=== PATIENT | male | born 1955 | race Caucasian/White ===

== ENCOUNTER 2020-04-23 16:58 | Inpatient (IN) | payer MEDICARE, OTHER ==
[~2020-04-23] VITALS: Ht 170.2 cm; Wt 84.4 kg
[~2020-04-23 16:58] MED LIST: PIPERACILLIN /TAZOBACTAM 2.25 G in IV D5W 50 ML IV SCH
--- NOTE | 2020-04-23 17:49 | NUR ---
SENT FROM DR. ST FOR LOW O2 SAT. PT AAOX4, VSS. DENIES CP, DIZZINESS, N/V, WEAKNESS AT THIS TIME. O2 SAT 85% RA. PLACED ON 4L OF O2, O2 SAT 100%. PT SEEN & EVAL'D BY DR. SCALES. PLACED ON FUNERAL DIRECTOR/EMBALMER, SR. WILL CONT TO MONITOR.
[2020-04-23] MEDS ORDERED: FERR325T23 PO (18:03)
[2020-04-23] MEDS ORDERED: PANT40TA49 PO (18:03)
[2020-04-23] MEDS ORDERED: SEVE800T28 PO (18:03)
[2020-04-23] MEDS ORDERED: FURO40TA5 PO (18:03)
[2020-04-23] MEDS ORDERED: CALC667C6 PO (18:03)
[2020-04-23] MEDS ORDERED: ASPI-1498 PO (18:03)
[2020-04-23] MEDS ORDERED: FOLI0.8T23 PO (18:03)
[2020-04-23] MEDS ORDERED: FENO145T21 PO (18:03)
[2020-04-23] MEDS ORDERED: TRAZ-252 PO (18:03)
[2020-04-23] MEDS ORDERED: ATOR10TA PO (18:03)
[2020-04-23] MEDS ORDERED: METO25TA20 PO (18:03)
[2020-04-23] MEDS ORDERED: DOCU250C21 PO (18:03)
[2020-04-23] MEDS ORDERED: FAMO20TA8 PO (18:03)
[2020-04-23] MEDS ORDERED: LINA5TAB PO (18:03)
[2020-04-23] MEDS ORDERED: FINA5TAB11 PO (18:03)
[2020-04-23] MEDS ORDERED: MIDO10TA PO (18:03)
[2020-04-23 18:12] LABS: BASOPHILS # (AUTO) 0.1 /CMM (0.0-0.2); BASOPHILS % (AUTO) 0.7 % (0.0-2.0); EOSINOPHILS % (AUTO) 1.9 % (0.0-6.0); HEMATOCRIT 32 % (39-51); HEMOGLOBIN 9.9 g/dL (13.5-17.5); LYMPHOCYTES # (AUTO) 0.4 /CMM (0.8-4.8); LYMPHOCYTES % (AUTO) 4.3 % (20.0-44.0); MEAN CORPUSCULAR HGB CONC 31 g/dl (31.0-36.0); MEAN CORPUSCULAR VOLUME 101 fL (80-96); MONOCYTES % (AUTO) 11.9 % (2.0-12.0); NEUTROPHILS % (AUTO) 81.2 % (43.0-81.0); PLATELET COUNT (AUTO) 192 /CMM (150-450); RED BLOOD CELL COUNT(AUTO) 3.14 MIL/uL (4.5-6.0); WHITE BLOOD COUNT (AUTO) 8.7 K/uL (4.3-11.0)
[2020-04-23] MEDS ORDERED: IV NS 0.9% 250 ML IV ONE (18:34)
[2020-04-23] MEDS ORDERED: IOHEXOL-350 100 ML VIAL IV ONE (18:34)
[2020-04-23 18:39] LABS: CALCIUM, SERUM 8.7 mg/dL (8.5-10.1); CREATININE 5.2 mg/dL (0.6-1.3); POTASSIUM 4.4 mmol/L (3.5-5.1)
[2020-04-23 19:03] LABS: ALBUMIN 1.8 g/dL (3.4-5.0); BILIRUBIN,DIRECT 0.1 mg/dL (0.0-0.2); BILIRUBIN,TOTAL 0.2 mg/dL (0.2-1.0); TOTAL PROTEIN, SERUM 6.3 g/dL (6.4-8.2)
--- NOTE | 2020-04-23 19:18 | NUR ---
PT STABLE, RR EVEN & UNLABORED. DENIES CP, SOB, DIZZINESS, N/V AT THIS TIME. WILL CONT TO MONITOR.
[2020-04-23] MEDS ORDERED: PIPERACILLIN /TAZOBACTAM 3.375 G in IV D5W 50 ML IV ONE (19:30)
[2020-04-23] MEDS ORDERED: LEVOFLOXACIN 750 MG /D5W 150ML 150 ML IV ONE (19:30)
--- NOTE | 2020-04-23 19:44 | NUR ---
CALLED NURSING SUP FOR [facility] BED.
--- NOTE | 2020-04-23 19:45 | NUR ---
KEVIN LANDAVERDE, DNP @ BS FOR EVAL
--- NOTE | 2020-04-23 19:59 | NUR ---
BED ASSIGNMENT 257
[2020-04-23] MEDS ORDERED: MAGNESIUM HYDROXIDE 30 ML UDC PO PRN (20:00)
[2020-04-23] MEDS ORDERED: Z GUARD REMEDY 2 OZ OINT TP PRN (20:00)
[2020-04-23] MEDS ORDERED: MORPHINE SULFATE INJ 2 MG/ML DISP.SYRIN IV PRN (20:00)
[2020-04-23] MEDS ORDERED: ONDANSETRON HCL/PF 4 MG/2 ML VIAL IVP PRN (20:00)
[2020-04-23] MEDS ORDERED: MAG HYDROX/AL HYDROX/SIMETH 30 ML UDC PO PRN (20:00)
[2020-04-23] MEDS ORDERED: HYDROCODONE/APAP 5/325MG TABLET PO PRN (20:00)
[2020-04-23] MEDS ORDERED: MIDODRINE HCL (5MG) 5 MG TABLET PO PRN (20:30)
[2020-04-23] MEDS ORDERED: ALBUTEROL FS 2.5 MG/0.5 ML VIAL.NEB NEB PRN (20:30)
--- NOTE | 2020-04-23 21:15 | NUR ---
REPORT GIVEN TO MAYLIN ROSE FOR REY.
[2020-04-23 22:00] VITALS: BP 122/65
--- NOTE | 2020-04-23 22:00 | NUR ---
PT BEING ADMITTED IN THE ICU FOR PNA, RESP. FAILURE. OXYGEN 4L VIA NASAL CANNULA. SAT 97%, NO ACUTE DISTRESS NOTED. LEAD LAYING AND GLUING MACHINE OPERATOR SHOWING V PACED, IV LT HAND 18G. SALINE LOCK. RT HAND AV FISTULA. AFEBRILE. HOB ELEVATED. MARILU LOWER EXTREMITY SWOLLEN 2+. SACRAL STAGE 1. RT LOWER CHEST PLEURX. AFEBRILE, WILL CONTINUE TO MONITOR.
[2020-04-23 23:00] VITALS: BP 122/57
[2020-04-23 23:15] VITALS: BP 100/54
[2020-04-23 23:30] VITALS: BP 51/37
[2020-04-23] MEDS: HEPARIN SODIUM, PORCINE 5000 UNITS/1 ML VIAL SQ SCH (23:44)
[2020-04-23] MEDS: ATORVASTATIN 10 MG TABLET PO SCH (23:45)
[2020-04-23] MEDS: TRAZODONE 50 MG TABLET PO SCH (23:45)
[2020-04-24] VITALS (58 sets, daily range): BP systolic 80–128; BP diastolic 26–75
--- NOTE | 2020-04-24 | NUR ---
RESIDENTIAL SALES. ORAL MDS SCANNED AND GIVEN. C PAP PLACED. SAT 98%. NO ACUTE DISTRESS NOTED. FLAGSETTER SHOWING V PACED. WILL CONTINUE TO MONITOR VITALS
--- NOTE | 2020-04-24 | NUR ---
curriculum writer. remaining same c pap setting tolerated well
--- NOTE | 2020-04-24 02:00 | NUR ---
agricultural produce commission agent . pt remaining same c pap setting tolerated well.will continue to monitor
[2020-04-24] MEDS ORDERED: PIPERACILLIN /TAZOBACTAM 3.375 G VIAL IV ONE (04:47)
[2020-04-24] MEDS ORDERED: PIPERACILLIN /TAZOBACTAM 2.25 G VIAL IV ONE (04:51)
[2020-04-24 04:52] LABS: BASOPHILS # (AUTO) 0.1 /CMM (0.0-0.2); BASOPHILS % (AUTO) 0.7 % (0.0-2.0); EOSINOPHILS % (AUTO) 1.7 % (0.0-6.0); HEMATOCRIT 28 % (39-51); HEMOGLOBIN 8.7 g/dL (13.5-17.5); LYMPHOCYTES # (AUTO) 0.3 /CMM (0.8-4.8); LYMPHOCYTES % (AUTO) 4.1 % (20.0-44.0); MEAN CORPUSCULAR HGB CONC 31 g/dl (31.0-36.0); MEAN CORPUSCULAR VOLUME 102 fL (80-96); MONOCYTES % (AUTO) 13.7 % (2.0-12.0); NEUTROPHILS # (AUTO) 5.9 /CMM (1.8-8.9); NEUTROPHILS % (AUTO) 79.8 % (43.0-81.0); PLATELET COUNT (AUTO) 159 /CMM (150-450); RED BLOOD CELL COUNT(AUTO) 2.75 MIL/uL (4.5-6.0); WHITE BLOOD COUNT (AUTO) 7.5 K/uL (4.3-11.0)
[2020-04-24] MEDS: PIPERACILLIN /TAZOBACTAM 2.25 G in IV D5W 50 ML IV SCH ×3 (04:53→21:06)
[2020-04-24 05:05] LABS: CALCIUM, SERUM 8.1 mg/dL (8.5-10.1); CREATININE 5.5 mg/dL (0.6-1.3); MAGNESIUM 2.3 mg/dL (1.8-2.4); PHOSPHORUS 5.9 mg/dL (2.5-4.9); POTASSIUM 4.5 mmol/L (3.5-5.1)
[2020-04-24 05:20] LABS: THYROID STIMULATING HORMONE 2.413 uIU/mL (0.358-3.74)
--- NOTE | 2020-04-24 05:48 | NUR ---
RT NOTE REMOVED PT FROM NOC CPAP. PLACED PT ON 36% NASAL CANNULA. PT AWAKE/ALERT AND FOLLOWING COMMANDS. NO DISTRESS NOTED AT THIS TIME. RN SALVATORE AWARE.
--- NOTE | 2020-04-24 06:00 | NUR ---
horticultural farmworker. pt slept well during shift, oxygen 4l nasal cannula tolerated well. sat 97%. no acute distress noted. monitor showing v pacing. will continue to monitor hd started.
--- NOTE | 2020-04-24 07:10 | NUR ---
RN NOTES BILL DIALYSIS NURSE AT THE BED SITE
[2020-04-24] MEDS ORDERED: PANTOPRAZOLE 40 MG TABLET.DR PO SCH (07:30)
--- NOTE | 2020-04-24 07:30 | NUR ---
RN NOTES RECEIVED PT IN BED AND PT IS HAVING DIALYSIS . ALERT AND ORIENTED X3.R HAND HD. PT IS 4L O2 SAT IN HIS 95%. NO SOB OR DISTRESS NOTED. L HAND IV IS TKO RUNNING NO INFILTRATION OR INFECTION NOTED.R HAND IS HD DIALYSIS. BRANCH ADMINISTRATOR NURSE SALVATORE STATED DRAINED PLEX CATHETER WAS DRAINED 200 ML.SAFETY MEASURE ARE IMPLEMENTED PER HOSPITAL POLICY.BED IS IN THE LOWEST POSITION. SIDE RAILS ARE UP X2.CALL LIGHT WITHIN THE REACH.WILL CONTUNIE TO MONITOR
--- NOTE | 2020-04-24 07:53 | NUR ---
superintendent horticulture. pleurx catheter drain 200ml. serous color
[2020-04-24] MEDS: METOPROLOL TARTRATE 25 MG TABLET PO SCH (08:48)
--- NOTE | 2020-04-24 08:50 | NUR ---
RN NOTES DIALYSIS IS STILL IN PLACE. INFORMED DOCTOR THAT METOPROLOL WILL BE HELD AND LASIX DUE TO BP IS LOW 90/49. CHARGE NURSE JOSE ALBERTO IS AWARE.
[2020-04-24] MEDS: SEVELAMER CARBONATE 800 MG TABLET PO SCH ×3 (08:54→17:52)
[2020-04-24] MEDS: VIT B CMPLX 3/FA/VIT C/BIOTIN 1 TAB TABLET PO SCH (08:54)
[2020-04-24] MEDS: FAMOTIDINE (20 MG) 20 MG TABLET PO SCH (08:55)
[2020-04-24] MEDS: LINAGLIPTIN 5 MG TABLET PO SCH (08:55)
[2020-04-24] MEDS: FINASTERIDE (5 MG) 5 MG TABLET PO SCH (08:55)
[2020-04-24] MEDS: CALCIUM ACETATE 667 MG TABLET PO SCH ×3 (08:55→17:53)
[2020-04-24] MEDS: DOCUSATE SODIUM 250 MG CAPSULE PO SCH (08:55)
[2020-04-24] MEDS: DOXYCYCLINE HYCLATE (100 MG) 100 MG TABLET PO SCH ×2 (08:55→16:03)
[2020-04-24] MEDS: ASPIRIN EC 81 MG TABLET.DR PO SCH (08:55)
[2020-04-24] MEDS: FENOFIBRATE NANOCRYS (145 MG) 145 MG TABLET PO SCH (08:55)
[2020-04-24] MEDS: FERROUS SULFATE (325 MG) 325 MG/TAB TABLET PO SCH ×2 (08:55→16:03)
[2020-04-24] MEDS: HEPARIN SODIUM, PORCINE 5000 UNITS/1 ML VIAL SQ SCH ×2 (08:57→21:15)
[2020-04-24] MEDS ORDERED: FUROSEMIDE 40 MG TABLET PO SCH (09:00)
[2020-04-24 09:23] LABS: THYROID STIMULATING HORMONE 2.417 uIU/mL (0.358-3.74)
--- NOTE | 2020-04-24 11:00 | NUR ---
RN NOTES BILL DONE WITH DIALYSIS AND TOOK 1800 ML . PT BP IS STILL TOO LOW. HIS BASIC IS TOO BP LOW
--- NOTE | 2020-04-24 11:00 | NUR ---
RN NOTES NOTED REDNESS, CELLULITIS AND HEAT IN HIS LEGS CONTRAINDICATION FOR SCD COMPRESSORS WILL REMOVE AND NOTIFIED DOCTOR MARCO FOR FURTHER NOTICE
--- NOTE | 2020-04-24 12:16 | NUR ---
RN NOTES DOCTOR MARCO CHECKED PT LEGS STATING THAT IT IS CHRONIC VENOUS HEPARIN SUBCUTE IT IS GOOD NO NEED FOR SCD
--- NOTE | 2020-04-24 16:00 | NUR ---
RN NOTES PT IS RESTING . NO SOB OR DISTRESS NOTED
--- NOTE | 2020-04-24 18:50 | NUR ---
RN NOTES NO DRAINAGE FROM PLEUX CATHETER
--- NOTE | 2020-04-24 18:51 | NUR ---
RN CLOSING NOTES PT IS RESTING IN BED. ALERT AND ORIENTED X3.R HAND HD. PT IS 4L O2 SAT IN HIS 95%. NO SOB OR DISTRESS NOTED. L HAND IV IS TKO RUNNING NO INFILTRATION OR INFECTION NOTED.R HAND IS HD DIALYSIS. ALL NEEDS ARE MET. PT IS DRY AND MEDS WERE TAKEN. SAFETY MEASURE ARE IMPLEMENTED PER HOSPITAL POLICY.BED IS IN THE LOWEST POSITION. SIDE RAILS ARE UP X2.CALL LIGHT WITHIN THE REACH.WILL ENDORSE TO NIGHT NURSE FOR REY
--- NOTE | 2020-04-24 19:47 | NUR ---
OIL ANALYST. INITIAL ASSESSMENT. RECEIVED THE PT REST ON THE BED. AWAKE , ALERT FOLLOW COMMANDS. OXYGEN 4L VIA NASAL CANNULA. SAT 98%. EASEMENT MAN SHOWING V PACING. IV LT HAND 18G. SALINE LOCK. WILL CONTINUE TO MONITOR.
[2020-04-24] MEDS: ATORVASTATIN 10 MG TABLET PO SCH (21:06)
[2020-04-24] MEDS: TRAZODONE 50 MG TABLET PO SCH (21:06)
--- NOTE | 2020-04-24 21:41 | NUR ---
RT pt placed on noc cpap with current settings per md order. no sob/no resp distress. ambu bag at bedside. pt tolerating cpap well. will continue to monitor.
[2020-04-25] VITALS (68 sets, daily range): BP systolic 47–182; BP diastolic 28–140
--- NOTE | 2020-04-25 02:00 | NUR ---
manager agricultural. no changes. will continue to monitor
[2020-04-25 04:39] LABS: BASOPHILS # (AUTO) 0.1 /CMM (0.0-0.2); BASOPHILS % (AUTO) 0.9 % (0.0-2.0); EOSINOPHILS % (AUTO) 2.9 % (0.0-6.0); HEMATOCRIT 28 % (39-51); HEMOGLOBIN 8.8 g/dL (13.5-17.5); LYMPHOCYTES # (AUTO) 0.3 /CMM (0.8-4.8); LYMPHOCYTES % (AUTO) 4.7 % (20.0-44.0); MEAN CORPUSCULAR HGB CONC 31 g/dl (31.0-36.0); MEAN CORPUSCULAR VOLUME 101 fL (80-96); MONOCYTES # (AUTO) 0.8 /CMM (0.1-1.30); MONOCYTES % (AUTO) 12.9 % (2.0-12.0); NEUTROPHILS # (AUTO) 5.2 /CMM (1.8-8.9); NEUTROPHILS % (AUTO) 78.6 % (43.0-81.0); PLATELET COUNT (AUTO) 172 /CMM (150-450); WHITE BLOOD COUNT (AUTO) 6.6 K/uL (4.3-11.0)
[2020-04-25 04:55] LABS: CALCIUM, SERUM 8.5 mg/dL (8.5-10.1); POTASSIUM 4.7 mmol/L (3.5-5.1)
--- NOTE | 2020-04-25 04:55 | NUR ---
olericulture teacher. am care. oral care, bed bath given. linen changed, remaining same c pap setting tolerated well. sat 86. afebrile, will continue to monitor
[2020-04-25] MEDS: PIPERACILLIN /TAZOBACTAM 2.25 G in IV D5W 50 ML IV SCH (05:00)
--- NOTE | 2020-04-25 06:39 | NUR ---
sewage reticulation drafting officer. hd started, will continue to monitor
--- NOTE | 2020-04-25 07:30 | NUR ---
FIELD SPEC OPENING NOTES RECEIVED PT RESTING ON THE BED. AWAKE , ALERT, AND ORIENTED X4. NOT IN ANY DISTRESS AT THIS TIME. OXYGEN 4L VIA NASAL CANNULA. SAT 98%. ROAD CONSULTANT SHOWING V PACING. IV LT HAND 18G. SALINE LOCK. BED KEPT IN LOWEST POSITION. SAFETY PRECAUTION OBSERVED. WILL CONTINUE TO MONITOR
[2020-04-25] MEDS: CALCIUM ACETATE 667 MG TABLET PO SCH ×3 (08:28→17:40)
[2020-04-25] MEDS: SEVELAMER CARBONATE 800 MG TABLET PO SCH ×3 (08:28→17:40)
[2020-04-25] MEDS: DOCUSATE SODIUM 250 MG CAPSULE PO SCH (08:28)
[2020-04-25] MEDS: FINASTERIDE (5 MG) 5 MG TABLET PO SCH (08:28)
[2020-04-25] MEDS: VIT B CMPLX 3/FA/VIT C/BIOTIN 1 TAB TABLET PO SCH (08:28)
[2020-04-25] MEDS: FENOFIBRATE NANOCRYS (145 MG) 145 MG TABLET PO SCH (08:28)
[2020-04-25] MEDS: FERROUS SULFATE (325 MG) 325 MG/TAB TABLET PO SCH (08:28)
[2020-04-25] MEDS: LINAGLIPTIN 5 MG TABLET PO SCH (08:28)
[2020-04-25] MEDS: DOXYCYCLINE HYCLATE (100 MG) 100 MG TABLET PO SCH ×2 (08:29→17:40)
[2020-04-25] MEDS: ASPIRIN EC 81 MG TABLET.DR PO SCH (08:29)
[2020-04-25] MEDS: FAMOTIDINE (20 MG) 20 MG TABLET PO SCH (08:29)
[2020-04-25] MEDS: HEPARIN SODIUM, PORCINE 5000 UNITS/1 ML VIAL SQ SCH ×2 (08:31→21:28)
[2020-04-25] MEDS: METOPROLOL TARTRATE 25 MG TABLET PO SCH (08:35)
--- NOTE | 2020-04-25 09:30 | NUR ---
HEMODIALYSIS ENDED. PT IN STABLE CONDITION.
[2020-04-25] MEDS ORDERED: EPOETIN ALFA (10,000 UNIT) 10,000 UNIT/ML VIAL IV ONE (15:00)
[2020-04-25] MEDS: SOD FERRIC GLUC 125 MG in IV NS 0.9% 100 ML IV SCH (16:12)
--- NOTE | 2020-04-25 18:45 | NUR ---
RN CLOSING NOTES PT REMAINS ALERT AND ORIENTED X3. R HAND HD. PT IS 4L O2 SAT IN HIS 95%. NO SOB OR DISTRESS NOTED. L HAND IV IS TKO RUNNING NO INFILTRATION OR INFECTION NOTED. ALL NEEDS ATTENDED TO. SAFETY MEASURE ARE IMPLEMENTED PER HOSPITAL POLICY. BED IS IN THE LOWEST POSITION. SIDE RAILS ARE UP X2. CALL LIGHT WITHIN THE REACH.WILL ENDORSE TO NEXT SHIFT FOR REY.
--- NOTE | 2020-04-25 19:42 | NUR ---
cvicu rn. initial assessment, received the pt rest on the bed. awake, alert, follow commands. oxygen 4l via nasal cannula. sat 98%. no acute distress noted. equipment monitor phototypesetting showing v pacing. hob elevated. afebrile. will continue to monitor vitals,
[2020-04-25] MEDS: TRAZODONE 50 MG TABLET PO SCH (21:29)
[2020-04-25] MEDS: ATORVASTATIN 10 MG TABLET PO SCH (21:29)
--- NOTE | 2020-04-25 22:16 | NUR ---
forester silviculture.no new changes, will continue to monitor
--- NOTE | 2020-04-25 22:48 | NUR ---
PT PLACED ON NOC CPAP. MAYLIN CHASE NOTIFIED.
--- NOTE | 2020-04-25 23:33 | NUR ---
HOSPICE RN. PT REFUSED C PAP, OXYGEN 4L VIA NASAL CANNULA, SAT 97%. WILL CONTINUE TO MONITOR
--- NOTE | 2020-04-25 23:37 | NUR ---
RN NOTIFIED ME THAT PT REMOVED HIS CPAP MASK. REFUSED TO WEAR IT BACK. PLACED ON NC. WILL CONTINUE TO MONITOR.
[2020-04-26] VITALS (22 sets, daily range): BP systolic 83–110; BP diastolic 44–65
--- NOTE | 2020-04-26 02:00 | NUR ---
apiculture teacher. no changes. will continue to monitor
--- NOTE | 2020-04-26 04:00 | NUR ---
manager agricultural.am care, oral care, bed bath given. linen changed. remaining same oxygen tolerated well. sat 97%. no acute distress noted. monitoring specialist showing v pacing. afebrile. hob elevated. turn and reposition q2h. will continue to monitor vitals.
--- NOTE | 2020-04-26 04:36 | NUR ---
horticulture/floriculture teacher. 04/25/20. 2100and 2200 all meds scanned.
[2020-04-26 05:33] LABS: BASOPHILS % (AUTO) 0.5 % (0.0-2.0); EOSINOPHILS % (AUTO) 3.1 % (0.0-6.0); HEMATOCRIT 25 % (39-51); LYMPHOCYTES # (AUTO) 0.3 /CMM (0.8-4.8); LYMPHOCYTES % (AUTO) 4.6 % (20.0-44.0); MEAN CORPUSCULAR HGB CONC 31 g/dl (31.0-36.0); MEAN CORPUSCULAR VOLUME 102 fL (80-96); MONOCYTES # (AUTO) 0.9 /CMM (0.1-1.30); MONOCYTES % (AUTO) 13.6 % (2.0-12.0); NEUTROPHILS # (AUTO) 4.9 /CMM (1.8-8.9); NEUTROPHILS % (AUTO) 78.2 % (43.0-81.0); PLATELET COUNT (AUTO) 156 /CMM (150-450); WHITE BLOOD COUNT (AUTO) 6.3 K/uL (4.3-11.0)
[2020-04-26 05:42] LABS: CALCIUM, SERUM 8.4 mg/dL (8.5-10.1); CREATININE 4.5 mg/dL (0.6-1.3); POTASSIUM 4.6 mmol/L (3.5-5.1)
--- NOTE | 2020-04-26 06:44 | NUR ---
agricultural equipment sales engineer,.during shift pt slept well. no new changes. design project manager showing v pacing
[2020-04-26] MEDS ORDERED: ALBUMIN 25% 25 GM in PREMIX 1 EA IV PRN (08:30)
[2020-04-26] MEDS: FAMOTIDINE (20 MG) 20 MG TABLET PO SCH (08:47)
[2020-04-26] MEDS: CALCIUM ACETATE 667 MG TABLET PO SCH ×3 (08:47→17:04)
[2020-04-26] MEDS: DOXYCYCLINE HYCLATE (100 MG) 100 MG TABLET PO SCH ×2 (08:47→17:05)
[2020-04-26] MEDS: VIT B CMPLX 3/FA/VIT C/BIOTIN 1 TAB TABLET PO SCH (08:47)
[2020-04-26] MEDS: SEVELAMER CARBONATE 800 MG TABLET PO SCH ×3 (08:47→17:05)
[2020-04-26] MEDS: DOCUSATE SODIUM 250 MG CAPSULE PO SCH (08:48)
[2020-04-26] MEDS: ASPIRIN EC 81 MG TABLET.DR PO SCH (08:48)
[2020-04-26] MEDS: FINASTERIDE (5 MG) 5 MG TABLET PO SCH (08:48)
[2020-04-26] MEDS: LINAGLIPTIN 5 MG TABLET PO SCH (08:48)
[2020-04-26] MEDS: HEPARIN SODIUM, PORCINE 5000 UNITS/1 ML VIAL SQ SCH ×3 (08:48→21:18)
[2020-04-26] MEDS: SOD FERRIC GLUC 125 MG in IV NS 0.9% 100 ML IV SCH (14:20)
--- NOTE | 2020-04-26 16:00 | NUR ---
RN NOTE PATIENT TRANSFERRED TO [facility] 116-1. REPORT GIVEN TO JOSE RAUL
--- NOTE | 2020-04-26 16:11 | NUR ---
supervisor telephone answering service note received patient from [facility] ,alert oriented x4 on tele monitor v pacing , rt upper arm av shunt ,lt ac r\hl intact , lt upper arm mid line in place , no sob noted all needs attended not in distress
--- NOTE | 2020-04-26 19:01 | NUR ---
[facility] RN CLOSING NOTE PT RESTING COMFORTABLY IN BED. PT A/OX4, DENIES PAIN. BREATHING UNLABORED NC 4LPM. ON TELE MONITOR, HAS RT UPPER ARM AV SHUNT AND LT AC R/HL INTACT. LT UPPER ARM MIDLINE IN PLACE. PT SAFETY PRECAUTIONS IN PLACE, BED LOCKED AND IN LOWEST POSITION, MARCI RAILS UP X2, CALL BAR WITHIN REACH. CONTINUE TO MONITOR.
--- NOTE | 2020-04-26 19:20 | NUR ---
RN OPENING NOTES RECEIVED PT IN BED. A/O X 4. FULL CODE NOTED. TELEMETRY MONITORING IN PLACE. AT THIS TIME SR 80S. PT IS ON 4L OF O2 SATURATING WELL NO S/S OF RESP DISTRESS OR SOB. BREATHING EVEN AND UNLABORED. PT HAS RIGHT UPPER ARM AV SHUNT. SIGN POSTED NO BLOOD DRAW OR BP ON RIGHT ARM. PT HAS LEFT AC #18 FLUSHED SL. PT DENIES PAIN AT THIS TIME. BED IS LOCKED IN LOWEST POSITION BED ALARM ON. CALL LIGHT WITHIN REACH. WILL CONTINUE TO MONITOR.
[2020-04-26] MEDS: TRAZODONE 50 MG TABLET PO SCH (21:16)
--- NOTE | 2020-04-26 21:55 | NUR ---
PT REQUESTS PAIN MEDICATION DUE TO GENERALIZED PAIN 09/02. TYLENOL 650 MG PRN NOTED. WILL CONTINUE TO MONITOR.
[2020-04-26] MEDS: ACETAMINOPHEN 325 MG TABLET PO PRN (22:06)
--- NOTE | 2020-04-26 23:26 | NUR ---
RT NOTE PT REC'D ON 3LNC. PT AWAKE AND ALERT. PT PLACED ON CPAP ON SETTINGS CHARTED. PT SHOWS NO SIGNS OF RESP DISTRESS OR SOB. ALARMS ARE SET AND AUDIBLE. AMBU BAG BEDSIDE. CPAP PLUGGED INTO RED OUTLET. WILL CONTINUE TO MONITOR Addendum: 04/26/20 at 1417 by JEFFERY COLLAZO RT Amended: Links added.
--- NOTE | 2020-04-26 23:30 | NUR ---
RT AT BEDSIDE, PT ON CPAP. SATURATING AT 97% WILL CONTINUE TO MONITOR
[2020-04-27] VITALS: BP 101/57
--- NOTE | 2020-04-27 03:50 | NUR ---
PT STILL ASLEEP WITH CPAP ON, NO S/S OF RESP DISTRESS. BREATHING EVEN AND UNLABORED. WILL CONTINUE TO MONITOR.
[2020-04-27 04:00] VITALS: BP 104/47
[2020-04-27 06:16] LABS: CALCIUM, SERUM 8.5 mg/dL (8.5-10.1); CREATININE 4.7 mg/dL (0.6-1.3); MAGNESIUM 2.1 mg/dL (1.8-2.4); PHOSPHORUS 5.2 mg/dL (2.5-4.9); POTASSIUM 4.4 mmol/L (3.5-5.1)
[2020-04-27 06:38] LABS: BASOPHILS % (AUTO) 0.3 % (0.0-2.0); EOSINOPHILS % (AUTO) 3.4 % (0.0-6.0); HEMATOCRIT 28 % (39-51); HEMOGLOBIN 8.6 g/dL (13.5-17.5); LYMPHOCYTES # (AUTO) 0.3 /CMM (0.8-4.8); LYMPHOCYTES % (AUTO) 5.2 % (20.0-44.0); MEAN CORPUSCULAR HGB CONC 31 g/dl (31.0-36.0); MEAN CORPUSCULAR VOLUME 103 fL (80-96); MONOCYTES % (AUTO) 15.8 % (2.0-12.0); NEUTROPHILS # (AUTO) 4.7 /CMM (1.8-8.9); NEUTROPHILS % (AUTO) 75.3 % (43.0-81.0); PLATELET COUNT (AUTO) 138 /CMM (150-450); RED BLOOD CELL COUNT(AUTO) 2.71 MIL/uL (4.5-6.0); WHITE BLOOD COUNT (AUTO) 6.2 K/uL (4.3-11.0)
--- NOTE | 2020-04-27 06:59 | NUR ---
RN CLOSING NOTES PT IS STILL ON CPAP, ASLEEP AT THIS TIME. TOLERATING WELL. PT IS NOT IN ANY ACUTE DISTRESS. STILL ON TELE MONITORING SR WITH A HR IN 80S. NO SIGNIFICANT CHANGE THROUGHOUT MY SHIFT. PT SLEPT WELL. IV SITES FLUSHED. PT TOLERATED HYGIENE CARE AND REPOSITIONING. NO COMPLAINTS OF PAIN. SAFETY MEASURES IN PLACE. HOB ELEVATED 30 DEGREES. BED IS LOCKED IN LOWEST POSITION. SIDE RAILS UP X2. CALL LIGHT IS WITHIN REACH. WILL ENDORSE TO ONCOMING NURSE FOR CONTINUATION OF CARE.
--- NOTE | 2020-04-27 07:51 | NUR ---
MOTORBOAT MECHANIC INBOARD NOTE: PT IN BED, EYES OPEN AND TALKING. PT A/OX4. PT ON 4L RA, O2 SATURATION 99%. NO RESPIRATORY DISTRESS OR SOB. PT ON MONITOR SHOWING NSR 80S. PREVIOUS RN REPORTS NO OUTPUT FROM PT. PT ON STRICT I/O, RENAL DIET. PT IS BEDBOUND WITH RIGHT ARM DISCOLORATION, SACRAL REDNESS WITH MEPILEX APPLIED, R CHEST PLEURA CATH DRESSING. PT HAS LAC #18 SL, AND WILLIAM MIDLINE SL, NO SIGNS OF INFECTION OR INFILTRATION. BED IN LOCKED LOWEST POSITION. CALL LIGHT WITHIN REACH. ALL SAFETY MEASURES IN PLACE. WILL CONTINUE TO MONITOR CLOSELY.
[2020-04-27 08:00] VITALS: BP 105/46
[2020-04-27] MEDS: VIT B CMPLX 3/FA/VIT C/BIOTIN 1 TAB TABLET PO SCH (08:39)
[2020-04-27] MEDS: SEVELAMER CARBONATE 800 MG TABLET PO SCH ×3 (08:39→18:13)
[2020-04-27] MEDS: DOCUSATE SODIUM 250 MG CAPSULE PO SCH (08:40)
[2020-04-27] MEDS: CALCIUM ACETATE 667 MG TABLET PO SCH ×3 (08:40→18:13)
[2020-04-27] MEDS: FAMOTIDINE (20 MG) 20 MG TABLET PO SCH (08:40)
[2020-04-27] MEDS: ASPIRIN EC 81 MG TABLET.DR PO SCH (08:41)
[2020-04-27] MEDS: LINAGLIPTIN 5 MG TABLET PO SCH (08:41)
[2020-04-27] MEDS: DOXYCYCLINE HYCLATE (100 MG) 100 MG TABLET PO SCH ×2 (08:41→16:47)
[2020-04-27] MEDS: FINASTERIDE (5 MG) 5 MG TABLET PO SCH (08:41)
[2020-04-27] MEDS: HEPARIN SODIUM, PORCINE 5000 UNITS/1 ML VIAL SQ SCH ×2 (08:49→21:35)
[2020-04-27] MEDS: CARVEDILOL 3.125 MG TABLET PO SCH ×2 (10:00→21:00)
--- NOTE | 2020-04-27 11:20 | NUR ---
CAREER COUNSELOR NOTE: LEATHER SPLITTER IN ROOM NOW, COREG HELD, BP 105/46
[2020-04-27 12:00] VITALS: BP 113/82
--- NOTE | 2020-04-27 13:00 | NUR ---
BILLING AND INSURANCE COORDINATOR NOTE: PNEUMATIC PRESS HAND REPORTS 1000 ML OUTPUT DURING HD.
[2020-04-27] MEDS: ACETAMINOPHEN 325 MG TABLET PO PRN (13:37)
--- NOTE | 2020-04-27 13:39 | NUR ---
LIFE CONSULTANT NOTE: 650 MG TYLENOL GIVEN FOR PAIN 5/10 PER MD ORDER IN RIGHT ARM FROM DIALYSIS BANDAGE. DRESSING REMOVED, WILL REASSESS PAIN.
[2020-04-27] MEDS: SOD FERRIC GLUC 125 MG in IV NS 0.9% 100 ML IV SCH (14:39)
[2020-04-27 16:00] VITALS: BP 101/35
[2020-04-27 16:31] LABS: *SPE A/G RATIO 0.7 (0.7-1.7); *SPE ALBUMIN 1.9 g/dL (2.9-4.4); *SPE ALPHA-1-GLOBULIN 0.3 g/dL (0.0-0.4); *SPE ALPHA-2-GLOBULIN 0.8 g/dL (0.4-1.0); *SPE GLOBULIN, TOTAL 2.9 g/dL (2.2-3.9); *SPE M-SPIKE Not Observed g/dL (Not Observed); *SPEGAMMA GLOBULIN 0.7 g/dL (0.4-1.8)
[2020-04-27] MEDS ORDERED: EPOETIN ALFA (10,000 UNIT) 10,000 UNIT/ML VIAL IV ONE (18:00)
--- NOTE | 2020-04-27 18:14 | NUR ---
DIRECTOR OF INSTRUCTIONAL TECHNOLOGY NOTE: EPOGEN 1 ML VIAL GIVEN, HGB 8.6
--- NOTE | 2020-04-27 19:05 | NUR ---
UX RESEARCH ASSOCIATE NOTE: NO CHANGE IN PT CONDITION. PT IN BED EYES OPEN, A/OX4. PT ON 4L O2 SATURATION 93-100%. NO RESPIRATORY DISTRESS OR SOB. PT ON MONITOR SHOWING V-PACING IN 80S. PT HD OUTPUT 1000 ML TODAY. PT LAC #18 SL AND MARQUIS MIDLINE. BOTH LINES REMAIN INTACT AND FLUSHED WELL. NO SIGNS OF INFECTION OR INFILTRATION. PT SKIN REMAINS INTACT. CALL LIGHT WITHIN REACH. ALL SAFETY MEASURES IN PLACE. BED IN LOCKED LOWEST POSITION. REPORT GIVEN TO ONCOMING RN FOR REY.
--- NOTE | 2020-04-27 19:25 | NUR ---
RN OPENING NOTES PT IS AWAKE IN BED. OPEN EYES. A/O X4. FULL CODE NOTED. ON TELE MONITOR. SHOWING VPACING BASELINE TO PT. HR 83 AT THIS TIME. PT IS ON 4L OF O2 VIA NC TOLERATING WELL. NO S/S OF RESP DISTRESS OR SOB NOTED AT THIS TIME. BREATHING IS EVEN AND UNLABORED. PT IS BED BOUND, WITH RIGHT ARM SKIN DISCOLORATION NOTED AMND DRESSING INTACT FROM PREVIOUS RIGHT PLEURA CATH. DRESSING CLEAN DRY. PT IS ON RENAL DIET. IV SIRE LEFT UPPER ARM MIDLINE. FLUSHED PATENT, USED ASEPTIC TECHNIQUE. RIGHT AV SHUNT NOTED. SIGN POSTED OF NO BP OR BLOOD DRAW ON RIGHT SIDE. LEFT ARM HAS PREVIOUS DIALYSIS ACCESS VERBALIZED BY PT NOT IN USE. LEFT IV SITE AC OCCLUDED, WILL DISCONTINUE. PT SAFETY MEASURES IN PLACE. HOB ELEVATED 30 DEGREES. BED IS LOCKED IN LOWEST POSITION WITH BED ALARM ON. CALL LIGHT WITHIN REACH. WILL CONTINUE TO MONITOR.
[2020-04-27 20:00] VITALS: BP 97/48
[2020-04-27] MEDS: TRAZODONE 50 MG TABLET PO SCH (21:25)
--- NOTE | 2020-04-27 22:15 | NUR ---
REMOVED IV SITE AC #18 WITH CATHETER INTACT. APPLIED 2X2 GAUZE HELD PRESSURE FOR 1 MIN, ARM RAISED ABOVE THE HEART. NO S/S OF INFILTRATION. SITE IS COOL TO TOUCH. NO S/S OF BLEEDING NOTED. DRESSING INTACT, GAUZE HELD WITH TAPE. WILL CONTINUE TO MONITOR/
--- NOTE | 2020-04-27 23:50 | NUR ---
RT AT BEDSIDE PLACING CPAP MACHINE.
[2020-04-28] VITALS: BP 102/48
--- NOTE | 2020-04-28 00:09 | NUR ---
RECHECKED IV SITE THAT WAS DISCONTINUED. DRESSING CLEAN DRY AND INTACT. NO S/S OF BLEEDING NOTED.
--- NOTE | 2020-04-28 02:11 | NUR ---
PT REMOVED CPAP, VERBALIZED HE DOES NOT WANT IT ON ANYMORE. SOMEWHAT AGITATED. EXPLAINED RISKS AND BENEFITS X3. PT STILL REFUSED. PLACED BACK ON NASAL CANNULA RECEIVING 4L OF O2. PT COMPLIANT AND CALM. WILL CONTINUE TO MONITOR.
--- NOTE | 2020-04-28 03:56 | NUR ---
PT REFUSED BAD BATH AT THIS TIME. Addendum: 04/28/20 at 0357 by SOLO WALLS RN PT REFUSED BED BATH* AT THIS TIME
[2020-04-28 04:00] VITALS: BP 104/54
[2020-04-28 05:55] LABS: BASOPHILS % (AUTO) 0.5 % (0.0-2.0); EOSINOPHILS % (AUTO) 1.8 % (0.0-6.0); HEMATOCRIT 26 % (39-51); HEMOGLOBIN 8.1 g/dL (13.5-17.5); LYMPHOCYTES # (AUTO) 0.3 /CMM (0.8-4.8); LYMPHOCYTES % (AUTO) 3.8 % (20.0-44.0); MEAN CORPUSCULAR HGB CONC 31 g/dl (31.0-36.0); MEAN CORPUSCULAR VOLUME 102 fL (80-96); MONOCYTES % (AUTO) 12.5 % (2.0-12.0); NEUTROPHILS # (AUTO) 6.8 /CMM (1.8-8.9); NEUTROPHILS % (AUTO) 81.4 % (43.0-81.0); PLATELET COUNT (AUTO) 136 /CMM (150-450); RED BLOOD CELL COUNT(AUTO) 2.54 MIL/uL (4.5-6.0); WHITE BLOOD COUNT (AUTO) 8.4 K/uL (4.3-11.0)
--- NOTE | 2020-04-28 06:15 | NUR ---
PT REQUESTS TO SPEAK WITH DOCTOR REGARDING CARE, SPECIFICALLY DIALYSIS SCHEDULE, WILL ENDORSE TO ONCOMING NURSE
[2020-04-28 06:20] LABS: CALCIUM, SERUM 8.6 mg/dL (8.5-10.1); CREATININE 5.1 mg/dL (0.6-1.3); POTASSIUM 4.7 mmol/L (3.5-5.1)
--- NOTE | 2020-04-28 06:37 | NUR ---
RN CLOSING NOTES PT IS AWAKE IN BED. VERBALIZED BED BATH AT A LATER TIME WHEN ASKED AGAIN. BESIDES THAT, PT IS COOPERATIVE WITH CARE. WILL ENDORSE TO AM NURSE. STILL ON TELE MONITOR V PACING NOTED. BASELINE TO PT. PT IS ON 4L VIA NASAL CANNULA TOLERATING WELL. NO SIGNS OF SOB OR RESP DISTRESS NOTED AT THIS TIME. BREATHING IS EVEN AND UNLABORED. PT DENIES PAIN AT THIS TIME. NO SIGNIFICANT CHANGES THROUGHOUT THE NIGHT. NO BM NO VOID DURING MY SHIFT. NO S/S OF INFILTRATION, IV SITE IS FLUSHED AND PATENT. SAFETY MEASURES IN PLACE. ID BAND ON. HOB ELEVATED 30 DEGREES. BED LOCKED IN LOWEST POSITION. CALL LIGHT WITHIN REACH. BED ALARM ON. WILL ENDORSE TO ONCOMING NURSE FOR CONTINUATION OF CARE.
[2020-04-28 08:00] VITALS: BP 90/43
[2020-04-28] MEDS: CARVEDILOL 3.125 MG TABLET PO SCH (09:00)
--- NOTE | 2020-04-28 09:29 | NUR ---
room air sat at rest 86%,dr. sandhu aware cleared patient for discharge w/ home o2 at 2 liters and bipap at home,cm made aware,primary rn notified.
--- NOTE | 2020-04-28 09:51 | NUR ---
PER [facility] HD NURSE PATIENT WAS DIALYZE YESTERDAY,NOT SCHEDULE TODAY.
[2020-04-28] MEDS: SEVELAMER CARBONATE 800 MG TABLET PO SCH ×3 (10:22→17:46)
[2020-04-28] MEDS: ASPIRIN EC 81 MG TABLET.DR PO SCH (10:22)
[2020-04-28] MEDS: LINAGLIPTIN 5 MG TABLET PO SCH (10:23)
[2020-04-28] MEDS: FINASTERIDE (5 MG) 5 MG TABLET PO SCH (10:23)
[2020-04-28] MEDS: CALCIUM ACETATE 667 MG TABLET PO SCH ×3 (10:23→17:46)
[2020-04-28] MEDS: DOCUSATE SODIUM 250 MG CAPSULE PO SCH (10:23)
[2020-04-28] MEDS: VIT B CMPLX 3/FA/VIT C/BIOTIN 1 TAB TABLET PO SCH (10:23)
[2020-04-28] MEDS: DOXYCYCLINE HYCLATE (100 MG) 100 MG TABLET PO SCH ×2 (10:24→17:46)
[2020-04-28] MEDS: FAMOTIDINE (20 MG) 20 MG TABLET PO SCH (10:24)
[2020-04-28] MEDS: HEPARIN SODIUM, PORCINE 5000 UNITS/1 ML VIAL SQ SCH (10:25)
[2020-04-28 12:00] VITALS: BP 117/56
[2020-04-28] MEDS: SOD FERRIC GLUC 125 MG in IV NS 0.9% 100 ML IV SCH (13:52)
[2020-04-28 16:00] VITALS: BP 99/47
--- NOTE | 2020-04-28 18:45 | NUR ---
RN NOTE THE PATIENT REFUSED DISCHARGE SKIN ASSESSMENT DESPITE EXPLAINING RISKS AND BENEFITS MULTIPLE TIMES.
--- NOTE | 2020-04-28 18:49 | NUR ---
[facility] RN CLOSING NOTE PT AWAKE IN BED, A/Ox4 WITH PERIODS OF FORGETFULNESS. PT IS COOPERATIVE WITH CARE. PT IS AMBULATORY WITH 1 ASSIST. PT IS ON TELEMONITOR V-PACING IN THE 80s NOTED. PT IS ON 4LPM NC AND TOLERATING WELL, SPO2 95%, NO S/S OF SOB OR RESP DISTRESS. BREATHING IS EVEN AND UNLABORED. PT DENIES PAIN AT THIS POINT. PT IS ANURIC. LFA #20 TO BE REMOVED PRIOR TO TRANSPORT. RT AV SHUNT FOR HD. SAFETY PRECAUTIONS IN PLACE. BED LOCKED AND IN LOWEST POSITION, BED ALARM ON, SR UP x2, PT IN SEMIFOWLER'S, CALL LIGHT WITHIN REACH, ID BAND ON. WILL ENDORSE TO ONCOMING NURSE FOR CONTINUATION OF CARE.
--- NOTE | 2020-04-28 19:20 | NUR ---
RN OPENING NOTE RECEIVED PATIENT IN BED RESTING ALERT ORIENTED X4 VERBALLY RESPONSIVE NO SOB NOT ACUTE DISTRESS NOTED,PATIENT IS ON 4L OXYGEN VIA NASAL CANNULA, O2:94% IV SITE IS ON LEFT UPPER ARM MID LINE INTACT PATENT,AND AV SHUNT ON RIGHT UPPER ARM FOR DIALYSIS,BED IN LOW POSITION AND LOCKED,IMPLEMENT SAFETY MEASURE,CALL LIGHT WITHIN REACH,CONTINUE TO MONITOR.
[2020-04-28 20:00] VITALS: BP 102/50
--- NOTE | 2020-04-28 20:30 | NUR ---
RN CLOSING NOTE PATIENT DISCHARGED HOME IN STABLE CONDITION ALERT ORIENTED X4 VERBALLY RESPONSIVE NO SOB NOT ACUTE DISTRESS NOTED,IS ON 4L OXYGEN VIA NASAL CANNULA, O2:94% IV MIDLINE REMOVED UPON DISCHARGE NO BLEEDING NOTED,HE LEFT HOSPITAL ON GURNEY ACCOMPANIED BY 2 PIPE PROCESSOR [facility] AFTER HE SIGNED ALL DISCHARGE PAPERS AND BELONGINGS.
== END 2020-04-28 21:45 | disposition home or self-care (01) | DRG 291 ==
LOC: ER 17:12 → ICU 20:07 → TELE1 04-26 15:46 → MEDSG1 04-28 09:44
PROVIDERS: ADMIT Nurse Practitioner Acute Care; ATTEND Internal Medicine
PROC: 5A09457 Assistance with Respiratory Ventilation, 24-96 Consecutive Hours, Continuous Positive Airway Pressure (ICD-10-PCS; principal; 2020-04-23)
PROC: 5A1D70Z Performance of Urinary Filtration, Intermittent, Less than 6 Hours Per Day (ICD-10-PCS; 2020-04-24)
DX: I13.2 Hypertensive heart and chronic kidney disease with heart failure and with stage 5 chronic kidney disease, or end stage renal disease (principal); J96.01 Acute respiratory failure with hypoxia; N18.6 End stage renal disease; I50.23 Acute on chronic systolic (congestive) heart failure; E43 Unspecified severe protein-calorie malnutrition; J98.11 Atelectasis; J90 Pleural effusion, not elsewhere classified; K21.9 Gastro-esophageal reflux disease without esophagitis; Z99.2 Dependence on renal dialysis; E11.22 Type 2 diabetes mellitus with diabetic chronic kidney disease; Z79.82 Long term (current) use of aspirin; Z79.899 Other long term (current) drug therapy; E78.5 Hyperlipidemia, unspecified; I25.10 Atherosclerotic heart disease of native coronary artery without angina pectoris; G47.00 Insomnia, unspecified; I48.91 Unspecified atrial fibrillation; D53.9 Nutritional anemia, unspecified; I70.0 Atherosclerosis of aorta; N40.0 Benign prostatic hyperplasia without lower urinary tract symptoms; D69.6 Thrombocytopenia, unspecified; D63.8 Anemia in other chronic diseases classified elsewhere; Z79.84 Long term (current) use of oral hypoglycemic drugs; Z87.891 Personal history of nicotine dependence; Z95.2 Presence of prosthetic heart valve; G47.33 Obstructive sleep apnea (adult) (pediatric); E11.51 Type 2 diabetes mellitus with diabetic peripheral angiopathy without gangrene; Z98.890 Other specified postprocedural states
CPT/HCPCS: 36415; 71045-TC; 80048-TC; 80061-TC; 80076-TC; 82728-TC; 83540-TC; 83605-TC; 83735-TC; 83880; 84100-TC; 84155; 84165; 84439-TC; 84443-TC; 84484-TC; 85025-TC; 85730-TC; 86706; 87040-TC; 87081-TC; 87340; 90935-TC; 93307-TC; 93970-TC; 94660; 94799-TC; A4216; G0378; J0885; J1644; J1956; J2270; J2543; J2916; J7030; J7050; J7060; P9047; Q9967; U0003